=== PATIENT | male | born 1955 | race Two or more races ===

== ENCOUNTER 2021-09-01 06:04 | Day surgery (SDC) | payer OTHER | END 2021-09-01 11:49 | disposition home or self-care (01) | LOC: AMB-ENDOS 06:04 | PROVIDERS: ATTEND Colon & Rectal Surgery | DX: D12.3 Benign neoplasm of transverse colon (principal); K62.5 Hemorrhage of anus and rectum; I10 Essential (primary) hypertension; I25.10 Atherosclerotic heart disease of native coronary artery without angina pectoris; G47.33 Obstructive sleep apnea (adult) (pediatric); Z85.46 Personal history of malignant neoplasm of prostate ==